=== PATIENT | male | born 1980 | race Caucasian/White ===

== ENCOUNTER 2017-10-27 12:41 | Emergency (ER) | payer OTHER ==
[~2017-10-27] VITALS: Ht 195.6 cm; Wt 120.0 kg
[2017-10-27 12:48] VITALS: TEMP 36.6; Ht 195.6 cm; Wt 120.0 kg
[2017-10-27] MEDS ORDERED: VNTHFA/IN INH (13:26)
--- NOTE | 2017-10-27 13:48 | DIAGNOSTIC IMAGING REPORT ---
CT HEAD WITHOUT CONTRAST (CT) CLINICAL HISTORY: Head pain status post trauma COMPARISON STUDY: No previous studies for comparison. TECHNIQUE: Axial CT of the brain is performed from the vertex to the skull base. IV contrast was not administered for this examination. A dose lowering technique was utilized adhering to the principles of ALARA. CT DOSE: 614.27 mGy.cm FINDINGS: No intra or extra-axial mass lesions are visualized. There is no CT evidence of acute cortical infarction. There is no evidence of midline shift. There is no acute hemorrhage. No calvarial fractures are visualized. There is no evidence of pathologic ventricular dilatation. There is no evidence of acute sinusitis IMPRESSION: No acute intracranial findings Electronically signed by: Jonn Jacobsen M.D. 10/27/2017 1:46 PM Dictated Date/Time: 10/27/2017 1:46 PM
[2017-10-27 14:52] VITALS: BP 150/89; PULSE 53; O2SAT 96
--- NOTE | 2017-10-30 13:10 | EMERGENCY ROOM VISIT NOTE ---
ED Visit Note First contact with patient: 12:51 Chief Complaint: Head injury. History of Present Illness: Mr. Ortiz is a 37-year-old black male who ambulates into the ED accompanied by 2 [facility] guards complaining of a possible head injury. It is reported approximately 2 hours ago patient was playing basketball and was elbowed in the forehead. He reports he did fall to the ground but did not strike his head at the time of the fall. There was no loss of consciousness either from the initial injury or the fall. He goes on to report that since the injury he has been having a bifrontal headache in the area in which she was struck. He describes this as a pressure sensation. He rates his discomfort 5/10. The pain is nonradiating. His pain worsens with palpation of the area. He has not identified any alleviating factors related to the pain. He has not had any medications for pain prior to arrival at the hospital. He reports he had some mild blurry vision at the time of the injury and still complains of mild blurry vision. He also reports that he has had some mild nausea but has not vomited. He denies any lightheadedness, dizziness, hearing changes, difficulty speaking, difficulty swallowing, difficulty ambulating/coordinating body movements, neck pain, back pain, chest pain, shortness of breath, extremity weakness/numbness/ tingling. Review of Systems: As noted above in history of present illness. At least body systems were reviewed and found to be negative as noted above. Past Medical History: Asthma depression, dyspepsia, constipation. Current Medications: Albuterol. Allergies to Medications: Patient denies. Social History: Patient is currently incarcerated; he denies tobacco use. Physical Examination: Vital Signs: Date Time Temp Pulse Resp B/P (MAP) Pulse Ox O2 Delivery O2 Flow Rate FiO2 10/27/17 14:52 53 16 150/89 96 10/27/17 12:48 36.6 47 16 150/62 98 GENERAL: 37-year-old male in mild distress due to pain, nontoxic-appearing, afebrile and hemodynamically stable. NEUROLOGICAL: Awake, alert and oriented to person, place and time. Answering questions appropriately and following commands. Normal gait. Good hand eye coordination. No focal motor or sensory deficits. Cranial nerves II through XII grossly intact. Romberg test negative. Pronator drift test negative. Short-term and long-term recall. Normal rapid alternating movements of the hands. Normal heel cox test. SKIN: Warm, dry and pink. No soft tissue open trauma noted. HEENT: Atraumatic and normocephalic. Skull: No bony deformity, bony crepitus, swelling or ecchymosis. No raccoons eyes or perez signs. No drainage from the ears of the nostril; no hemotympanum. Face: Patient has a 3-4 cm round contusion in the mid frontal area. There is no associated bony deformity or crepitus. PERRLA. EOMI without nystagmus. Funduscopic examination shows a normal-appearing optic disc with no signs of increased intracranial pressure. Visual acuity: 20/25 bilaterally without correction. Sclera white and conjunctiva pink. No malocclusion. No intraoral trauma. Airway patent. Speech is normal and clear. Trachea midline. No jugular venous distention. BACK: No tenderness over the bony cervical and thoracic spine. Cervical spine. THORAX: Lungs sounds are clear to auscultation and equal bilaterally with symmetrical chest wall. No crepitus, tenderness, subcutaneous air or deformities noted. ABDOMEN: Soft and nontender. Positive bowel sounds in all quadrants. EXTREMITIES: Moves all extremities well on command and with purpose. All distal neurovascular statuses are intact and equal bilaterally. Full muscle strength in all movements of the shoulder, elbow, forearm, wrist, hips, knees and ankles. ED Course: Patient is assessed as noted above. Patient's medication list was reviewed. Patient was offered pain medications and refused. Head CT: Was reviewed by myself and read by the radiologist shows no acute intracranial findings or skull fractures. Patient was educated about today's findings and instructed on his treatment plan ; he verbalized understanding and agreement with this plan. Clinical Impression: Concussion. Forehead contusion. Disposition: Patient discharged with regards back to [facility]; prior to departure he was reassessed and subjectively reported he was pain-free. Plan: Encourage that the patient receive ibuprofen or acetaminophen as needed for pain and ice for pain and swelling. Was encouraged the patient be observed for neurological symptoms and he was encouraged to report any new neurological symptoms. He was encouraged the patient followed up with a neurologist, concussion clinic as needed for recheck or be returned to the ED for worsening signs of concussion.
== END 2017-10-27 14:54 ==
LOC: C.EDB 12:45 → C.EDD 14:54
DX: S06.0X0A Concussion without loss of consciousness, initial encounter (principal); S00.83XA Contusion of other part of head, initial encounter; W50.0XXA Accidental hit or strike by another person, initial encounter; J45.909 Unspecified asthma, uncomplicated